=== PATIENT | male | born 1980 | race Caucasian/White ===

== ENCOUNTER 2020-03-23 15:22 | Emergency (ER) | payer BC, OTHER ==
[2020-03-23 16:14] LABS: #Basophils 0.1 thou/uL (0.0-0.2); #Eosinphils 0.1 thou/uL (0.0-0.7); #Lymphocytes 2.5 thou/uL (1.20-3.40); #Neutrophils 9.5 thou/uL (1.40-6.50); %Basophils 0.6 % (0.0-1.0); %Monocytes 7.7 % (0.0-10.0); %Neutrophils 71.7 % (42.0-75.0); Hemoglobin 14.8 g/dL (14.0-18.0); Mean Corpuscular HGB CONC 32.8 g/dL (32.0-36.0); Mean Corpuscular Volume 94.5 fL (78.0-98.0); Mean Platelet Volume 6.5 fL (7.4-10.4); Platelet Count 283 thou/uL (130-400); RBC Distribution Width 11.2 % (11.5-14.5); Red Blood Cell (RBC) Count 4.78 mill/uL (4.70-6.10); White Blood Cell (WBC) Count 13.3 thou/uL (4.8-10.8)
--- NOTE | 2020-03-23 16:27 | CT ---
NONCONTRAST CT HEAD: 03/23/20 HISTORY: Head injury. COMPARISON: 07/03/11. FINDINGS: There is no evidence of hemorrhage, acute infarction, mass effect or midline shift. The ventricular s ystem is normal in size, shape and position. 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 The vent ricular system is normal in size, shape and position. There is scalp soft tissue defect/laceration involving the lateral frontal scalp soft tissues near th e vertex with adjacent subcutaneous soft tissue swelling. There is also suggestion of mild scarring s een involving the lateral scalp soft tissues adjacent to this region as well. No underlying calvarial fracture is identified. The visualized paranasal sinuses and mastoid air cells are clear. No other i nterval change from prior study. IMPRESSION: 1. No acute intracranial abnormality demonstrated. 2. Scalp laceration near the vertex on the left with associated scalp soft tissue swelling. POS: [facility]
[2020-03-23 16:30] LABS: ALT (SGPT) 29 U/L (8-55); AST (SGOT) 16 U/L (5-34); Albumin 4.2 g/dL (3.5-5.0); Alkaline Phosphatase 75 U/L (40-110); Anion Gap 15 mmol/L (10-20); BUN (Urea Nitrogen) 13 mg/dL (8.9-20.6); Bilirubin, Total 0.3 mg/dL (0.2-1.2); Calc. Creatinine Clearance 0 mL/min (70-130); Calcium 9.1 mg/dL (7.8-10.44); Carbon Dioxide 25 mmol/L (22-29); Chloride 105 mmol/L (98-107); Estimated GFR-MDRD 86; Globulin 3.2 g/dL (2.4-3.5); Glucose 76 mg/dL (70-105); Potassium 4.1 mmol/L (3.5-5.1); Protein, Total 7.4 g/dL (6.0-8.3); Sodium 141 mmol/L (136-145)
[2020-03-23 16:31] LABS: Amphetamine Not Detected (NotDetected); Barbiturates Screen Not Detected (NotDetected); Benzodiazepine Screen Not Detected (NotDetected); Cocaine Metabolite Screen Not Detected (NotDetected); Medtox Control Line Valid? VALID (VALID); Methadone Not Detected (NotDetected); Methamphetamine Not Detected (NotDetected); Opiate Screen Not Detected (NotDetected); Oxycodone Screen Not Detected (NotDetected); Phencyclidine (PCP) Not Detected (NotDetected); THC/Cannabinoid Screen Not Detected (NotDetected); Tricyclic Screen Not Detected (NotDetected)
== END 2020-03-23 17:00 | disposition home or self-care (01) ==
LOC: MADERS 15:22
DX: F07.81 Postconcussional syndrome (principal); I10 Essential (primary) hypertension; F17.210 Nicotine dependence, cigarettes, uncomplicated; X58.XXXA Exposure to other specified factors, initial encounter
CPT/HCPCS: 36415; 70450; 80053; 80306; 85025